=== PATIENT | male | born 1980 | race Caucasian/White ===

== ENCOUNTER 2021-02-05 08:54 | Outpatient (CLI) | payer MEDICARE, MEDICAID, SELFPAY | END 2021-02-05 08:55 | disposition home or self-care (01) | LOC: ANHBWCAUD 08:55 | PROVIDERS: PCP Family Medicine; Visit Provider Family Medicine | DX: H91.93 Unspecified hearing loss, bilateral (principal) | CPT/HCPCS: 92557; 92567 ==

== ENCOUNTER 2024-03-30 08:40 | Outpatient (CLI) | payer MEDICARE, MEDICAID, SELFPAY | END 2024-03-30 08:41 | disposition home or self-care (01) | LOC: ANHBWCAUD 08:40 | PROVIDERS: PCP Family Medicine; Visit Provider Family Medicine | DX: H90.3 Sensorineural hearing loss, bilateral (principal) | CPT/HCPCS: 92557; 92567 ==